=== PATIENT | male | born 2000 | race Caucasian/White ===

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

== ENCOUNTER 2022-10-17 18:54 | Emergency (ER) | payer BC, MEDICAID ==
[~2022-10-17] VITALS: Ht 177.8 cm; Wt 72.6 kg
[~2022-10-17 18:54] MED LIST changes: +ACHD5005 PO
[2022-10-17 19:02] VITALS: BP 122/73
[2022-10-17] MEDS ORDERED: IBUPROFEN 600 MG (MOTRIN) TAB PO ONE (19:15)
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
--- NOTE | 2022-10-17 19:59 | Diagnostic Imaging Report ---
INDICATION: Right hand pain post injury AP, oblique, and lateral views of the right hand are obtained at 0739 p.m. There is an acute oblique fracture of the base of 5th metacarpal, with extension to the 5th carpal metacarpal joint. There is a comminuted fracture of the 4th metacarpal head with mild angulation. Remaining structures are intact. IMPRESSION: Acute fracture of 4th metacarpal head. Acute fracture of the base of the 5th metacarpal with intra-articular extension. Dictated by: Dictated on workstation # [id number]
[2022-10-17] MEDS ORDERED: ACHD5005 PO (20:08)
[2022-10-17] MEDS ORDERED: IBUP-1773 PO (20:09)
== END 2022-10-17 20:24 | disposition home or self-care (01) ==
LOC: EDUNIT# 18:54 → ER 18:56
DX: S62.394A Other fracture of fourth metacarpal bone, right hand, initial encounter for closed fracture (principal); S62.316A Displaced fracture of base of fifth metacarpal bone, right hand, initial encounter for closed fracture; F17.290 Nicotine dependence, other tobacco product, uncomplicated; Z28.310 Unvaccinated for COVID-19; Y04.2XXA Assault by strike against or bumped into by another person, initial encounter
CPT/HCPCS: 29125; 73130